=== PATIENT | female | born 1955 | race Caucasian/White ===

== ENCOUNTER 2022-08-31 08:30 | Emergency (ER) | payer MEDICARE, BC, SELFPAY ==
[2022-08-31 08:36] VITALS: BP 141/95; PULSE 98; RESP 16; TEMP 36.8; O2SAT 97
--- NOTE | 2022-08-31 08:58 | ED.GENADUL_ITS ---
Discharge Plan Disposition Patient Disposition: Home Condition: Improving Discharge Details Clinical Impression: Diverticulitis, Elevation of levels of liver transaminase levels Primary Care Provider: None,None ED Provider: Keturah Owens Home Meds and New Rx's Prescriptions: New amoxicillin-pot clavulanate 875-125 mg tablet 1 tab PO BID 10 Days Qty: 20 0RF Continued levothyroxine [Synthroid] 75 MCG tablet 75 mcg lisinopril 5 MG tablet 5 mg hydrochlorothiazide 25 MG tablet 12.5 mg losartan 50 mg Tablet 50 mg PO DAILY tamoxifen 20 mg Tablet 20 mg PO DAILY duloxetine 30 mg Capsule, Delayed Rel Sprinkle 30 mg PO DAILY Discontinued nitrofurantoin monohyd/m-cryst [Macrobid] 100 mg Capsule 100 mg PO BID Rx Instructions: must administer with a meal/food No Action simvastatin 20 MG tablet 20 mg Discharge Instructions Instructions: Diverticulitis (ED), Diverticulitis Diet (ED) Additional Instructions: This CT shows that you have what is called diverticulitis. Clear liquids for the next 2 to 3 days advance as tolerated. Stay away from anything with seeds in it. Take the antibiotic as prescribed with yogurt or a probiotic daily. You may sto p the Macrobid. Also the lab work showed that your liver enzymes are slightly elevated this may be due to the cholesterol medication that you are taking. Please discuss this with your primary care provider. Follow up with primary care provider in 3-5 days. Return to ED sooner if any worsening or concerns. Increase oral fluids. Please take Ibuprofen with food every 4-6 hours as needed for pain and swelling. Medical Decision Making 66-year-old female presents to the ER with chief complaint of nausea flank pain. Patient was diagnosed with UTI approximately 1 week ago. Has been on antibiotics for the last 5 days. She cannot recall the name of the antibiotics that she is taking. She also received 2 doses of Rocephin. She endorses nausea no vomiting no fever chills mild abdominal pain and mild flank pain. She does have a past medical history of high blood pressure hypothyroidism high cholesterol. UA, CBC CMP ordered. Patient taking Macrobid. CBC within normal limits, CMP shows potassium 3.1 glucose 155 bilirubin 2.6 AST 258 ALT 286 urinalysis shows 15 ketones moderate bilirubin negative for leukocytes or nitrites. Patient given cephalexin. She reports she is feeling better. Will give Augmentin in light of the Diverticulitis diagnosis. Discussed results with patient who verbalized understanding. She does have a history of diverticulitis. She denies any diarrhea however she is taking Metamucil. All of the questions were answered to the best my ability. I also did discuss her elevated liver enzymes and kidney gallstones which she is also aware of. She reports she is no longer taking the simvastatin. This text was generated using [employer]™ dictation system, please disregard any oddities of phrase or misspellings. Imaging Data Radiologic Study: Imaging: CT Scan Radiologist's impression: IMPRESSION: 1. Diverticulosis and Bowel wall thickening along the descending colon. Mild pericolonic inflammatory changes. Series 2, image 28 -34 No evidence of perforation or abscess formation or bleeding. Findings consistent with mild acute diverticulitis. 2. Large hiatal hernia 8 cm.. 3. Multiple gallstones in a contracted gallbladder. Thank you for allowing us to participate in the care of your patient. Dictated and Authenticated by: Bessy Barrientos MD Lab Data Lab results reviewed: Yes I reviewed the patient's lab results. Labs: Laboratory Tests Range/Units 08/31/22 08/31/22 08/31/22 08:40 09:05 09:05 WBC (4.4-10.8) 10^3/uL 4.90 RBC (3.93-5.22) 10^6/uL 4.71 Hgb (11.2-15.7) g/dL 14.0 Hct (36.0-46.0) % 41.6 MCV (80-95) fL 88 MCH (27.0-33.0) pg 29.7 MCHC (32.0-36.0) % 33.7 RDW (11.7-14.6) % 11.8 Plt Count (130-400) 10^3/uL 183 MPV (8.0-11.0) fL 10.5 Immature Gran % 0.2 Neutrophils % 70.6 Lymphocytes % 13.5 Monocytes % 10.6 Eosinophils % 4.3 Basophils % 0.8 Nucleated RBC % (0.0-0.3) % 0.0 Absolute Neutrophils (1.2-6.7) 10^3/uL 3.46 Absolute Lymphocytes (1.2-3.4) 10^3/uL 0.66 L Absolute Monocytes (0.1-0.8) 10^3/uL 0.52 Absolute Eosinophils (0.0-0.7) 10^3/uL 0.21 Absolute Basophils (0.0-0.2) 10^3/uL 0.04 Sodium (136-145) mmol/L 138 Potassium (3.5-5.1) mmol/L 3.1 L Chloride (98-107) mmol/L 101 Carbon Dioxide (21.0-32.0) mmol/L 28.5 Anion Gap (3-11) mmol/L 8.5 BUN (7-18) mg/dL 7 Creatinine (0.55-1.02) mg/dL 0.9 Est GFR (CKD-EPI 2020) (mL/min/1.73m2) 70.07 Glucose (74-106) mg/dL 155 H Calcium (8.5-10.1) mg/dL 9.1 Total Bilirubin (0.2-1.0) mg/dL 2.6 H AST (15-37) U/L 258 H ALT (14-59) U/L 286 H Alkaline Phosphatase (46-116) U/L 115 Total Protein (6.4-8.2) g/dL 7.8 Albumin (3.4-5.0) g/dL 3.5 Urine Color (Yellow) Yellow Urine Clarity (Clear) Clear Urine pH (5-8) 5.5 Ur Specific Qulin (1.005-1.025) 1.010 Urine Protein (Negative) mg/dL 30 H Urine Ketones (Negative) mg/dL 15 H Urine Blood (Negative) Negative Urine Nitrite (Negative) Negative Urine Bilirubin (Negative) Moderate H Urine Urobilinogen (Up to 0.2) mg/dL 1.0 H Ur Leukocyte Esterase (Negative) Negative Urine RBC (0-2) HPF 0-2 Urine WBC (0-5) HPF 0-2 Ur Epithelial Cells (Negative) HPF Many Urine Crystals (Negative) HPF Negative Urine Bacteria (Negative) HPF Rare Urine Casts (Negative) LPF Negative Urine Mucus (Negative) Negative Ur Culture Indicated? No/Sq. Contamination Urine Glucose (Negative) mg/dL Negative HPI General Mode of arrival: ambulatory . Date/Time Provider Initiated Documentation: 08/31/22 08:34 . Limitations to Documentation: no limitations . Information obtained by: patient, family, RN notes reviewed and old records reviewed . HPI Narrative: 66-year-old female presents to the ER with chief complaint of nausea flank pain. Patient was diagnosed with UTI approximately 1 week ago. Has been on antibiotics for the last 5 days. She cannot recall the name of the antibiotics that she is taking. She also received 2 doses of Rocephin. She endorses nausea no vomiting no fever chills mild abdominal pain and mild flank pain. She does have a past medical history of high blood pressure hypothyroidism high cholesterol. Related Data Home Medications Medication Instructions Recorded Confirmed hydrochlorothiazide 25 mg tablet 12.5 mg 02/24/13 02/24/13 levothyroxine 75 mcg tablet 75 mcg 02/24/13 02/24/13 (Synthroid) lisinopril 5 mg tablet 5 mg 02/24/13 02/24/13 simvastatin 20 mg tablet 20 mg 02/24/13 02/24/13 amoxicillin 875 mg-potassium 1 tab PO BID 10 days #20 tabs 08/31/22 clavulanate 125 mg tablet duloxetine 30 mg capsule,delayed 30 mg PO DAILY 08/31/22 08/31/22 release sprinkle losartan 50 mg tablet 50 mg PO DAILY 08/31/22 08/31/22 tamoxifen 20 mg tablet 20 mg PO DAILY 08/31/22 08/31/22 Previous Rx's Medication Instructions Recorded amoxicillin 875 mg-potassium 1 tab PO BID 10 days #20 tabs 08/31/22 clavulanate 125 mg tablet Allergies Allergy/AdvReac Type Severity Reaction Status Date / Time acetaminophen [From Percocet] Allergy Unverified 08/31/22 08:54 oxycodone HCl [From Percocet] Allergy Unverified 08/31/22 08:54 General Stated Complaint: Urinary KIAH: 3 Review of Systems All systems reviewed & are unremarkable except as noted in HPI and below Gastrointestinal Gastrointestinal: Reports nausea Genitourinary Genitourinary: Reports as per HPI and Reports flank pain PFSH All Active Problems (Updated 08/31/22 @ 10:46 by Keturah Owens NP) Diverticulitis (Chronic) Elevation of levels of liver transaminase levels (Acute) Social History Smoking/Tobacco Use Status: Former Tobacco Use Smoking risk assessment performed?: Yes Alcohol Intake: current Alcohol Intake frequency: holidays/special occasions only Alcohol type: beer Drug use: Never Housing: house Do you feel safe at home: Yes Do you feel safe in your relationship?: Yes Exam Narrative Exam Narrative: Constitutional: Alert and oriented x3. Appears stated age. Normal body habitus. Head: Normocephalic, no trauma. Eyes: Pupils PERRL, Red reflex noted, EOM's intact. Eyelids symmetrical without lesions, discharge, or swelling. ENT: Bilateral TM's WNL, External ear normal to inspection, no mastoid TTP, swelling, or erythema, Nasal turbinates WNL, no nasal discharge. Normal dentition, Posterior pharynx WNL, no exudate. Chest: RRR, Normal S1, S2, distal pulses intact. Resp: Lungs clear to auscultation bilaterally, no wheezes, rales, or rhonchi. Abdomen: Soft, non-distended, Normoactive bowel sounds all 4 quads. Musculoskeletal: Normal gait, 5/5 strength to all four extremities. Skin: No suspicious rashes or lesions. Capillary refill less than 2 sec. Neurologic: Cranial nerves II-XII intact. Alert and oriented x 3. Motor: No deficits noted. Sensory: Intact bilaterally all 4 extremities. Reflexes: DTR's intact bilaterally.. Hematologic/Lymphatic: No ecchymosis, no lymphadenopathy. Course Vital Signs Vital signs: Vital Signs Temperature 36.8 C 08/31/22 08:36 Pulse 98 H 08/31/22 08:36 Respiratory Rate 16 08/31/22 08:36 Blood Pressure 141/95 H 08/31/22 08:36 Pulse Oximetry 97 08/31/22 08:36 Temperature 36.8 C 08/31/22 08:36 Pulse 98 H 08/31/22 08:36 Respiratory Rate 16 08/31/22 08:36 Respiratory Effort Normal, Non-Labored 08/31/22 08:39 Blood Pressure 141/95 H 08/31/22 08:36 Pulse Oximetry 97 08/31/22 08:36 Oxygen Delivery Method Room Air 08/31/22 08:36 Oxygen Flow Rate 0 08/31/22 08:36 Pain Level 3 08/31/22 08:47 PAWSS Have you Been Recently Intoxicated or Drunk Within the Last 30 days?: No Have you Ever Experienced Previous Episodes of Alcohol Withdrawal?: No Have you ever Experienced Withdrawal Seizures?: No Have you ever Experienced Delirium Tremens(DT)s?: No Have you ever undergone Alcohol Rehabilitation Treatment (i.e, inpt ot outpatient treatment programs)?: No Have you ever Experienced Blackouts?: No Have you ever Combined Alcohol with other Downers within the last 90 days?: No Have you ever Combined Alcohol with any other Substance of Abuse during the last 90 days?: No Result: 0
[2022-08-31 09:05] LABS: Bilirubin Moderate (Negative); Blood Negative (Negative); Clarity Clear (Clear); Glucose Negative (Negative); Ketones 15 mg/dL (Negative); Leukocyte Esterase Negative (Negative); Nitrite Negative (Negative); pH 5.5 (5-8)
[2022-08-31 09:10] LABS: Abs Immature Grans 0.01 10^3/uL (0.0-0.06); Absolute Basophil Count 0.04 10^3/uL (0.0-0.2); Absolute Eosinophil Count 0.21 10^3/uL (0.0-0.7); Absolute Lymphocyte Count 0.66 10^3/uL (1.2-3.4); Absolute Monocyte Count 0.52 10^3/uL (0.1-0.8); Absolute Neutrophil Count 3.46 10^3/uL (1.2-6.7); Basophils % 0.8; Eosinophils % 4.3; HCT 41.6 % (36.0-46.0); Immature Grans % 0.2; Lymphocytes % 13.5; MCH 29.7 pg (27.0-33.0); MCHC 33.7 % (32.0-36.0); MCV 88 fL (80-95); MPV 10.5 fL (8.0-11.0); Monocytes % 10.6; Neutrophils % 70.6; Platelet Count 183 10^3/uL (130-400); RBC 4.71 10^6/uL (3.93-5.22); RDW 11.8 % (11.7-14.6); RDW-SD 38.2 fL
[2022-08-31 09:14] LABS: Bacteria Rare HPF (Negative); Casts Negative LPF (Negative); Crystals Negative HPF (Negative); Epithelial Cells Many HPF (Negative); Mucus Negative (Negative); RBC 0-2 HPF (0-2); WBC 0-2 HPF (0-5)
[2022-08-31 09:15] LABS: C & S Indicated? No/Sq. Contamination
--- NOTE | 2022-08-31 09:15 | DI.CT_ITS ---
Exam(s) CT ABDOMEN PELVIS WO EXAM: CT ABDOMEN PELVIS WO CLINICAL HISTORY: Flank pain. TECHNIQUE: Imaging Protocol: Axial computed tomography images with coronal and sagittal reformatted images were created and reviewed. COMPARISON: No exams were available for comparison FINDINGS: ABDOMEN: Lung Bases: There is a large hiatal hernia. Liver: There is diffuse fatty infiltration of the liver. No measurable mass. Gallbladder and biliary tract: Cholelithiasis. No biliary ductal dilatation. Pancreas: Normal density, no abnormal calcifications or inflammatory process. Spleen: Normal. Kidneys: Normal size, contour and axis.No radiodense stones or obstructive uropathy. No masses seen. Adrenal glands: No mass is seen. Lymph nodes: Within normal limits. Abdominal Aorta: Abdominal portion non-dilated. Atherosclerosis. PELVIS: Bladder:Symmetric distention, no gross wall thickening. Bowel: There is diverticulosis of the colon. The colon is collapsed limiting evaluation for wall thi ckening. No definite evidence of acute diverticulitis. There is no evidence of bowel obstruction. There does appear to be mild wall thickening in small bowel loops with adjacent mesenteric stranding in the left abdomen. Findings are suspicious for an enteritis. There is no evidence of appendicitis . Postsurgical changes seen in the rectosigmoid region. Peritoneal cavity: There is mild stranding in the mesentery in the left abdomen. This may represent a mild infectious/inflammatory process or enteritis. No free air. Reproductive organs: Unremarkable as visualized. Bones: Within normal limits. Soft Tissues: Within normal limits. IMPRESSION: 1. Wall thickening seen predominantly involving small bowel loops in the left abdomen with adjacent s oft tissue stranding suspicious for an infectious or inflammatory enteritis. 2. Diverticulosis of the colon. The bowel wall does not appear to be significantly thickened. The c olon is not well distended limiting evaluation. 3. No abscess or free air. 4. Cholelithiasis. 5. Large hiatal hernia. RADIATION DOSE DELIVERED: 1,022.81mGy.cm Total DLP DATA REPOSITORY: All CT scans at this facility are submitted to the National Radiology Data Registry (NRDR) Dose Index Registry (DIR) with the [employer] ([employer]). RADIATION OPTIMIZATION: All CT scans at this facility use at least one of these dose optimization te chniques: automated exposure control; mA and/or kV adjustment per patient size (includes targeted exa ms where dose is matched to clinical indication); or iterative reconstruction.
[2022-08-31 09:22] LABS: ALT 286 U/L (14-59); AST 258 U/L (15-37); Albumin 3.5 g/dL (3.4-5.0); Alkaline Phosphatase 115 U/L (46-116); Anion Gap 8.5 mmol/L (3-11); BUN 7 mg/dL (7-18); Bilirubin, Total 2.6 mg/dL (0.2-1.0); CO2 28.5 mmol/L (21.0-32.0); CREATININE 0.9 mg/dL (0.55-1.02); Calcium 9.1 mg/dL (8.5-10.1); Chloride 101 mmol/L (98-107); Estimated GFR 70.07 (mL/min/1.73m2); Glucose 155 mg/dL (74-106); Potassium 3.1 mmol/L (3.5-5.1); Sodium 138 mmol/L (136-145); Total Protein 7.8 g/dL (6.4-8.2)
[2022-08-31] MEDS: Normal Saline 250 ML 500 ML IV (09:27)
[2022-08-31] MEDS: Cephalexin 500 MG CAP PO (09:27)
[2022-08-31] MEDS: Ondansetron 4 MG/2 ML VIAL IVP (09:28)
--- NOTE | 2022-08-31 10:36 | DI.VRAD_ITS ---
PROCEDURE INFORMATION: Exam: CT Abdomen And Pelvis Without Contrast Exam date and time: 08/31/2022 9:40 AM Age: 66 years old Clinical indication: Other: Flank pain TECHNIQUE: Imaging protocol: Computed tomography of the abdomen and pelvis without contrast. Radiation optimization: All CT scans at this facility use at least one of these dose optimization techniques: automated exposure control; mA and/or kV adjustment per patient size (includes targeted exams where dose is matched to clinical indication); or iterative reconstruction. COMPARISON: No relevant prior studies available. FINDINGS: Lungs: Right basilar atelectasis Diaphragm: Large hiatal hernia 8 cm.. Liver: Hepatic steatosis Gallbladder and bile ducts: Multiple gallstones in a contracted gallbladder. Pancreas: Normal. No ductal dilation. Spleen: Normal. No splenomegaly. Adrenal glands: Normal. No mass. Kidneys and ureters: There is no evidence of renal or ureteral calcifications. Stomach and bowel: Diverticulosis and Bowel wall thickening along the descending colon. Mild pericolonic inflammatory changes. Series 2, image 28 -34 No evidence of perforation or abscess formation or bleeding. Findings consistent with acute diverticulitis. Sutures in the distal rectosigmoid Appendix: No evidence of appendicitis. Intraperitoneal space: Unremarkable. No free air. No significant fluid collection. Vasculature: Unremarkable. No abdominal aortic aneurysm. Lymph nodes: Unremarkable. No enlarged lymph nodes. Urinary bladder: Unremarkable as visualized. Reproductive: Unremarkable as visualized. Bones/joints: Unremarkable. No acute fracture. Soft tissues: Unremarkable. IMPRESSION: 1. Diverticulosis and Bowel wall thickening along the descending colon. Mild pericolonic inflammatory changes. Series 2, image 28 -34 No evidence of perforation or abscess formation or bleeding. Findings consistent with mild acute diverticulitis. 2. Large hiatal hernia 8 cm.. 3. Multiple gallstones in a contracted gallbladder. Dictated and Authenticated by: Bessy Barrientos MD. Ordering:ELVIA Rebollar MD
[2022-08-31 10:57] VITALS: BP 144/86; PULSE 74; RESP 18; O2SAT 97
[2022-08-31] MEDS: Amox. 875/Clav. 125, 2 TABS/BTL 1 TAB PO (10:58)
== END 2022-08-31 10:59 | disposition home or self-care (01) ==
PROVIDERS: Emergency Provider Registered Nurse Emergency
DX: K57.92 Diverticulitis of intestine, part unspecified, without perforation or abscess without bleeding (principal); R74.01 Elevation of levels of liver transaminase levels
CPT/HCPCS: 36415; 80053; 96361; 96374; 99284; 74176; 81003; 81015; 85025; J2405

== ENCOUNTER 2022-09-01 08:04 | Emergency (ER) | payer MEDICARE, BC, SELFPAY ==
[2022-09-01 08:09] VITALS: BP 127/77; PULSE 101; RESP 16; TEMP 37.1; O2SAT 95
[2022-09-01] MEDS: Ondansetron 4 MG/2 ML VIAL IVP (08:42)
[2022-09-01] MEDS: Normal Saline 1,000 ML 1000 ML IV ×2 (08:42→10:02)
[2022-09-01 08:43] LABS: Abs Immature Grans 0.02 10^3/uL (0.0-0.06); Absolute Basophil Count 0.03 10^3/uL (0.0-0.2); Absolute Eosinophil Count 0.15 10^3/uL (0.0-0.7); Absolute Lymphocyte Count 0.32 10^3/uL (1.2-3.4); Absolute Monocyte Count 0.39 10^3/uL (0.1-0.8); Absolute Neutrophil Count 5.63 10^3/uL (1.2-6.7); Basophils % 0.5; Eosinophils % 2.3; HCT 40.1 % (36.0-46.0); HGB 13.7 g/dL (11.2-15.7); Immature Grans % 0.3; Lymphocytes % 4.9; MCH 29.8 pg (27.0-33.0); MCHC 34.2 % (32.0-36.0); MCV 87 fL (80-95); MPV 10.3 fL (8.0-11.0); Platelet Count 174 10^3/uL (130-400); RDW 11.9 % (11.7-14.6); RDW-SD 38.5 fL; WBC 6.54 10^3/uL (4.4-10.8)
[2022-09-01 08:51] LABS: Magnesium 1.5 mg/dL (1.8-2.4)
[2022-09-01 08:57] LABS: ALT 274 U/L (14-59); AST 201 U/L (15-37); Albumin 3.2 g/dL (3.4-5.0); Alkaline Phosphatase 108 U/L (46-116); Anion Gap 12.1 mmol/L (3-11); BUN 9 mg/dL (7-18); Bilirubin, Total 2.7 mg/dL (0.2-1.0); CO2 24.9 mmol/L (21.0-32.0); CREATININE 0.8 mg/dL (0.55-1.02); Calcium 8.5 mg/dL (8.5-10.1); Chloride 103 mmol/L (98-107); Estimated GFR 80.71 (mL/min/1.73m2); Glucose 146 mg/dL (74-106); Lipase 32 U/L (16-77); Potassium 3.4 mmol/L (3.5-5.1); Sodium 140 mmol/L (136-145); Total Protein 7.3 g/dL (6.4-8.2)
[2022-09-01] MEDS: Magnesium Oxide 400 MG TAB 800 MG PO (09:05)
[2022-09-01 09:52] LABS: Bilirubin Large (Negative); Blood Negative (Negative); Clarity Sl Cloudy (Clear); Glucose 100 mg/dL (Negative); Ketones 15 mg/dL (Negative); Leukocyte Esterase Negative (Negative); Nitrite Negative (Negative); pH 5.5 (5-8)
[2022-09-01 09:58] LABS: Bacteria Rare HPF (Negative); C & S Indicated? No/Sq. Contamination; Casts Negative LPF (Negative); Crystals Negative HPF (Negative); Epithelial Cells Many HPF (Negative); Mucus Trace (Negative); RBC 0-2 HPF (0-2); WBC 0-2 HPF (0-5)
--- NOTE | 2022-09-01 10:58 | ED.GENADUL_ITS ---
Discharge Plan Disposition Patient Disposition: Home Discharge Details Clinical Impression: Elevation of levels of liver transaminase levels, Elevated bilirubin, Acute dehydration, Low blood magnesium Primary Care Provider: None,None ED Provider: Bisi Cee Home Meds and New Rx's Prescriptions: New magnesium 250 mg tablet 250 mg PO DAILY Qty: 10 0RF ondansetron 4 mg tablet,disintegrating 4 mg PO DAILY 5 Days Qty: 5 0RF Continued levothyroxine [Synthroid] 75 MCG tablet 75 mcg simvastatin 20 MG tablet 20 mg Patient Comments: does not take anymore lisinopril 5 MG tablet 5 mg Patient Comments: does not take any more hydrochlorothiazide 25 MG tablet 12.5 mg Patient Comments: does not take anymore losartan 50 mg Tablet 50 mg PO DAILY tamoxifen 20 mg Tablet 20 mg PO DAILY duloxetine 30 mg Capsule, Delayed Rel Sprinkle 30 mg PO DAILY Discontinued amoxicillin-pot clavulanate 875-125 mg tablet 1 tab PO BID 10 Days Qty: 20 0RF Discharge Instructions Instructions: Dehydration (ED) Additional Instructions: Take Zofran as needed for nausea and vomiting Take your magnesium supplement Stop the amoxicillin/clavulanate and follow-up with your doctor, you should be reevaluated next week You should also have your liver enzymes and your bilirubin checked next week, try to have as much liquid today as you are able to, recommend juice, popsicles, water, johana andrey and bland diet as tolerated when you are feeling symptomatic improvement I ordered an outpatient ultrasound, this should Medical Decision Making 66-year-old female presenting for reevaluation after being diagnosed with diverticulitis yesterday and started on Augmentin Reportedly started with diarrhea, nausea, vomiting after initiating Augmentin last evening. Denies any significant exacerbation of pain Denies any fever or chills. Denies any blood in vomitus or stool Denies any known sick contacts or exotic travel Magnesium low at 1.5 Urinalysis and CMP consistent with dehydration Although she does have elevated LFTs, they are improved from yesterday her bilirubin remains about the same, 2.6 yesterday's visit, 2.[address] yesterday was reviewed and there is no evidence of stone in the bile duct, lipase within normal limits, no leukocytosis and patient is afebrile without tenderness in the right upper quadrant, will order outpatient ultrasound for further evaluation although clinically she does not appear to have Jaye cystitis and I suspect that her discomfort is related to enteritis like illness She will need close outpatient reassessment, will prescribe magnesium, Zofran, and she will discontinue her Augmentin Outpatient ultrasound has been ordered and she will need repeat labs with her doctor next week discharged home in stable condition with stable vitals, tolerating p.o. challenge HPI General Date/Time Provider Initiated Documentation: 09/01/22 08:07 . HPI Narrative: This 66-year-old female presents for nausea vomiting and diarrhea. States she has had some intermittent abdominal pain for the past several days. Started with profuse diarrhea and nausea and vomiting last evening after starting Au gmentin for suspected diverticulitis. Denies any exacerbation of her pain. She states she feels like she might have a urinary tract infection. She also is having some back pain. She denies any dramatic change aside from the nausea vomiting and diarrhea. She has taken 2 doses of her Augmentin and felt nauseous with each consumption. Related Data Home Medications Medication Instructions Recorded Confirmed hydrochlorothiazide 25 mg tablet 12.5 mg 02/24/13 02/24/13 levothyroxine 75 mcg tablet 75 mcg 02/24/13 02/24/13 (Synthroid) lisinopril 5 mg tablet 5 mg 02/24/13 02/24/13 simvastatin 20 mg tablet 20 mg 02/24/13 02/24/13 duloxetine 30 mg capsule,delayed 30 mg PO DAILY 08/31/22 09/01/22 release sprinkle losartan 50 mg tablet 50 mg PO DAILY 08/31/22 09/01/22 tamoxifen 20 mg tablet 20 mg PO DAILY 08/31/22 09/01/22 magnesium 250 mg tablet 250 mg PO DAILY #10 tabs 09/01/22 ondansetron 4 mg disintegrating 4 mg PO DAILY 5 days #5 tabs 09/01/22 tablet Previous Rx's Medication Instructions Recorded magnesium 250 mg tablet 250 mg PO DAILY #10 tabs 09/01/22 ondansetron 4 mg disintegrating 4 mg PO DAILY 5 days #5 tabs 09/01/22 tablet Allergies Allergy/AdvReac Type Severity Reaction Status Date / Time acetaminophen [From Percocet] Allergy Unverified 09/01/22 08:23 oxycodone HCl [From Percocet] Allergy Unverified 09/01/22 08:23 General Stated Complaint: Nausea/Vomit/Diar KIAH: 3 PFSH All Active Problems (Updated 09/01/22 @ 11:06 by BONITA Taylor) Diverticulitis (Chronic) Elevation of levels of liver transaminase levels (Acute) Elevated bilirubin (Acute) Acute dehydration (Acute) Low blood magnesium (Acute) Social History Smoking/Tobacco Use Status: Former Tobacco Use Smoking risk assessment performed?: Yes Alcohol Intake: current Alcohol Intake frequency: holidays/special occasions only Alcohol type: beer Drug use: Never Housing: house Do you feel safe at home: Yes Do you feel safe in your relationship?: Yes Course Vital Signs Vital signs: Vital Signs Temperature 37.1 C 09/01/22 08:09 Pulse 101 H 09/01/22 08:09 Respiratory Rate 16 09/01/22 08:09 Blood Pressure 127/77 09/01/22 08:09 Pulse Oximetry 95 09/01/22 08:09 Temperature 37.1 C 09/01/22 08:09 Pulse 101 H 09/01/22 08:09 Respiratory Rate 16 09/01/22 08:09 Respiratory Effort Normal 09/01/22 08:12 Blood Pressure 127/77 09/01/22 08:09 Blood Pressure Position Sitting 09/01/22 08:09 Pulse Oximetry 95 09/01/22 08:09 Oxygen Delivery Method Room Air 09/01/22 08:09 Oxygen Flow Rate 0 09/01/22 08:09 Lab/Test Results Lab/Test Results: Laboratory Tests Range/Units 09/01/22 09/01/22 09/01/22 08:32 08:32 08:32 WBC (4.4-10.8) 10^3/uL 6.54 RBC (3.93-5.22) 10^6/uL 4.60 Hgb (11.2-15.7) g/dL 13.7 Hct (36.0-46.0) % 40.1 MCV (80-95) fL 87 MCH (27.0-33.0) pg 29.8 MCHC (32.0-36.0) % 34.2 RDW (11.7-14.6) % 11.9 Plt Count (130-400) 10^3/uL 174 MPV (8.0-11.0) fL 10.3 Immature Gran % 0.3 Neutrophils % 86.0 Lymphocytes % 4.9 Monocytes % 6.0 Eosinophils % 2.3 Basophils % 0.5 Nucleated RBC % (0.0-0.3) % 0.0 Absolute Neutrophils (1.2-6.7) 10^3/uL 5.63 Absolute Lymphocytes (1.2-3.4) 10^3/uL 0.32 L Absolute Monocytes (0.1-0.8) 10^3/uL 0.39 Absolute Eosinophils (0.0-0.7) 10^3/uL 0.15 Absolute Basophils (0.0-0.2) 10^3/uL 0.03 Sodium (136-145) mmol/L 140 Potassium (3.5-5.1) mmol/L 3.4 L Chloride (98-107) mmol/L 103 Carbon Dioxide (21.0-32.0) mmol/L 24.9 Anion Gap (3-11) mmol/L 12.1 H BUN (7-18) mg/dL 9 Creatinine (0.55-1.02) mg/dL 0.8 Est GFR (CKD-EPI 2020) (mL/min/1.73m2) 80.71 Glucose (74-106) mg/dL 146 H Calcium (8.5-10.1) mg/dL 8.5 Magnesium (1.8-2.4) mg/dL 1.5 L Total Bilirubin (0.2-1.0) mg/dL 2.7 H AST (15-37) U/L 201 H ALT (14-59) U/L 274 H Alkaline Phosphatase (46-116) U/L 108 Total Protein (6.4-8.2) g/dL 7.3 Albumin (3.4-5.0) g/dL 3.2 L Lipase (16-77) U/L 32 Urine Color (Yellow) Urine Clarity (Clear) Urine pH (5-8) Ur Specific [place] (1.005-1.025) Urine Protein (Negative) mg/dL Urine Ketones (Negative) mg/dL Urine Blood (Negative) Urine Nitrite (Negative) Urine Bilirubin (Negative) Urine Urobilinogen (Up to 0.2) mg/dL Ur Leukocyte Esterase (Negative) Urine RBC (0-2) HPF Urine WBC (0-5) HPF Ur Epithelial Cells (Negative) HPF Urine Crystals (Negative) HPF Urine Bacteria (Negative) HPF Urine Casts (Negative) LPF Urine Mucus (Negative) Ur Culture Indicated? Urine Glucose (Negative) mg/dL Range/Units 09/01/22 09:41 WBC (4.4-10.8) 10^3/uL RBC (3.93-5.22) 10^6/uL Hgb (11.2-15.7) g/dL Hct (36.0-46.0) % MCV (80-95) fL MCH (27.0-33.0) pg MCHC (32.0-36.0) % RDW (11.7-14.6) % Plt Count (130-400) 10^3/uL MPV (8.0-11.0) fL Immature Gran % Neutrophils % Lymphocytes % Monocytes % Eosinophils % Basophils % Nucleated RBC % (0.0-0.3) % Absolute Neutrophils (1.2-6.7) 10^3/uL Absolute Lymphocytes (1.2-3.4) 10^3/uL Absolute Monocytes (0.1-0.8) 10^3/uL Absolute Eosinophils (0.0-0.7) 10^3/uL Absolute Basophils (0.0-0.2) 10^3/uL Sodium (136-145) mmol/L Potassium (3.5-5.1) mmol/L Chloride (98-107) mmol/L Carbon Dioxide (21.0-32.0) mmol/L Anion Gap (3-11) mmol/L BUN (7-18) mg/dL Creatinine (0.55-1.02) mg/dL Est GFR (CKD-EPI 2020) (mL/min/1.73m2) Glucose (74-106) mg/dL Calcium (8.5-10.1) mg/dL Magnesium (1.8-2.4) mg/dL Total Bilirubin (0.2-1.0) mg/dL AST (15-37) U/L ALT (14-59) U/L Alkaline Phosphatase (46-116) U/L Total Protein (6.4-8.2) g/dL Albumin (3.4-5.0) g/dL Lipase (16-77) U/L Urine Color (Yellow) [place] Urine Clarity (Clear) Sl Cloudy Urine pH (5-8) 5.5 Ur Specific [place] (1.005-1.025) 1.020 Urine Protein (Negative) mg/dL 100 H Urine Ketones (Negative) mg/dL 15 H Urine Blood (Negative) Negative Urine Nitrite (Negative) Negative Urine Bilirubin (Negative) Large H Urine Urobilinogen (Up to 0.2) mg/dL 2.0 H Ur Leukocyte Esterase (Negative) Negative Urine RBC (0-2) HPF 0-2 Urine WBC (0-5) HPF 0-2 Ur Epithelial Cells (Negative) HPF Many Urine Crystals (Negative) HPF Negative Urine Bacteria (Negative) HPF Rare Urine Casts (Negative) LPF Negative Urine Mucus (Negative) Trace Ur Culture Indicated? No/Sq. Contamination Urine Glucose (Negative) mg/dL 100 H PAWSS Have you Been Recently Intoxicated or Drunk Within the Last 30 days?: No Have you Ever Experienced Previous Episodes of Alcohol Withdrawal?: No Have you ever Experienced Withdrawal Seizures?: No Have you ever Experienced Delirium Tremens(DT)s?: No Have you ever undergone Alcohol Rehabilitation Treatment (i.e, inpt ot outpati ent treatment programs)?: No Have you ever Experienced Blackouts?: No Have you ever Combined Alcohol with other Downers within the last 90 days?: No Have you ever Combined Alcohol with any other Substance of Abuse during the last 90 days?: No Result: 0
[2022-09-01 11:28] VITALS: BP 125/78; PULSE 85; RESP 16; O2SAT 97
== END 2022-09-01 11:30 | disposition home or self-care (01) ==
PROVIDERS: Emergency Provider Physician Assistant
DX: R74.01 Elevation of levels of liver transaminase levels (principal); R17 Unspecified jaundice; E86.0 Dehydration; R11.2 Nausea with vomiting, unspecified; R19.7 Diarrhea, unspecified; E83.42 Hypomagnesemia
CPT/HCPCS: 36415; 80053; 83690; 96361; 96374; 99284; 81003; 81015; 83735; 85025; J2405

== ENCOUNTER 2022-09-02 08:39 | Emergency (ER) | payer MEDICARE, BC, SELFPAY ==
[2022-09-02 08:45] VITALS: BP 137/87; PULSE 69; RESP 16; TEMP 36.7; O2SAT 99
--- NOTE | 2022-09-02 09:14 | ED.GENADUL_ITS ---
Discharge Plan Disposition Patient Disposition: Home Condition: Good Discharge Details Clinical Impression: Cholelithiasis Primary Care Provider: None,None ED Provider: Marian Tubbs Home Meds and New Rx's Prescriptions: Continued levothyroxine [Synthroid] 75 MCG tablet 75 mcg PO DAILY simvastatin 20 MG tablet 20 mg Patient Comments: does not take anymore lisinopril 5 MG tablet 5 mg Patient Comments: does not take any more hydrochlorothiazide 25 MG tablet 12.5 mg Patient Comments: does not take anymore magnesium 250 mg tablet 250 mg PO DAILY Qty: 10 0RF ondansetron 4 mg tablet,disintegrating 4 mg PO DAILY 5 Days Qty: 5 0RF losartan 50 mg Tablet 50 mg PO DAILY tamoxifen 20 mg Tablet 20 mg PO DAILY duloxetine 30 mg Capsule, Delayed Rel Sprinkle 30 mg PO DAILY Discharge Instructions Instructions: Biliary Colic (ED), Low Fat Diet (ED) Additional Instructions: Your ultrasound shows that you have fatty liver as well as mobile gall gallstones as we discussed. These stones are likely what is causing your recurrent abdominal pain. Please try to stick with low fat diet, information on this is attached. Please journal your symptoms to identify triggers. Referral has been sent as have your images (CT scan and ultrasound) to Dr. Zuniga at [facility]. If you develop increased pain, pain that is not improving, fevers/chills, vomiting, inability to stay hydrated or other new/worsening symptoms please seek care urgently once again. Otherwise, please follow up with Dr. Zuniga to discuss definitive management of your gall stones. Referrals: Chestre Zuniga DO [OSTEOPATHIC DOCTOR] - Medical Decision Making Patient is a pleasant 66 year old female presenting today for f/u of her abdominal US to assess GB. Was here over the weekend, reviewed previous notes, had outpatient US in f/u for transaminitis and concern for gall stones. She states that she was diagnosed with gallstones 3 years ago, incidentally, with her workup for breast cancer. She states that she has had multiple abdominal surgeries, complicated by adhesions leading to obstruction. She is concerned that she may have to have GB out and this could be a problem for hte procedure. She denies pain currently. Is feeling improved, feels that her visit over the weekend was primarily associated with GI bug she got from her grandsons. FINDINGS: LIVER: Normal size.? Increased echogenicity and decreased through transmission consistent with hepatic steatosis.? No focal liver lesions are seen.. GALLBLADDER: Mobile cholelithiasis.? No evidence of wall thickening. No pericholecystic fluid identified. DUVAL'S SIGN: Negative. BILIARY SYSTEM: No intrahepatic or extrahepatic biliary ductal dilation. KIDNEYS: Kidneys are symmetric in size. No evidence of renal calculi. No evidence of hydronephrosis. No renal mass or cyst identified. PANCREAS: Normal where visualized. SPLEEN: Not enlarged. ABDOMINAL AORTA AND IVC: Visualized portions normal caliber. ASCITES: None seen. IMPRESSION: Hepatic steatosis.? Cholelithiasis. Discussed results. Again, no pain currently. Resting comfortably. She would like to f/u with Dr. Zuniga at [facility] as she has had surgery with him in the past. Advised on low fat diet. Advised on strict return precations. She will journal to tract symptoms. All of her questions and concerns were addressed, she is in agreement with this plan. [facility] General Date/Time Provider Initiated Documentation: 09/02/22 08:41 . Limitations to Documentation: no limitations . Information obtained by: patient, family, RN notes reviewed and old records reviewed . History of Present Illness 66 year old F presents to the emergency department with the chief complaint of follow up of ultrasound result, described as mild (no pain currently), and is localized to the abdomen. Patient reports radiation to back. Eating worsens symptoms . Patient notes no other symptoms.. Patient did receive the following treatments prior to arrival, none Related Data Home Medications Medication Instructions Recorded Confirmed hydrochlorothiazide 25 mg tablet 12.5 mg 02/24/13 02/24/13 levothyroxine 75 mcg tablet 75 mcg PO DAILY 02/24/13 09/02/22 (Synthroid) lisinopril 5 mg tablet 5 mg 02/24/13 02/24/13 simvastatin 20 mg tablet 20 mg 02/24/13 02/24/13 duloxetine 30 mg capsule,delayed 30 mg PO DAILY 08/31/22 09/02/22 release sprinkle losartan 50 mg tablet 50 mg PO DAILY 08/31/22 09/02/22 tamoxifen 20 mg tablet 20 mg PO DAILY 08/31/22 09/02/22 magnesium 250 mg tablet 250 mg PO DAILY #10 tabs 09/01/22 09/02/22 ondansetron 4 mg disintegrating 4 mg PO DAILY 5 days #5 tabs 09/01/22 09/02/22 tablet Previous Rx's Medication Instructions Recorded magnesium 250 mg tablet 250 mg PO DAILY #10 tabs 09/01/22 ondansetron 4 mg disintegrating 4 mg PO DAILY 5 days #5 tabs 09/01/22 tablet Allergies Allergy/AdvReac Type Severity Reaction Status Date / Time acetaminophen [From Percocet] Allergy Unverified 09/02/22 08:48 oxycodone HCl [From Percocet] Allergy Unverified 09/02/22 08:48 General Stated Complaint: Recheck KIAH: 4 Review of Systems Constitutional Constitutional: Reports as per HPI, Denies chills and Denies fever(s) Cardiovascular Cardiovascular: Reports as per HPI, Denies chest pain and Denies dyspnea Respiratory Respiratory: Reports as per HPI, Denies cough and Denies dyspnea Gastrointestinal Gastrointestinal: Reports as per HPI Musculoskeletal Musculoskeletal: Reports as per HPI PFSH All Active Problems (Updated 09/02/22 @ 09:15 by BONITA Pelaez) Diverticulitis (Chronic) Elevation of levels of liver transaminase levels (Acute) Elevated bilirubin (Acute) Acute dehydration (Acute) Low blood magnesium (Acute) Cholelithiasis (Acute) Social History Smoking/Tobacco Use Status: Former Tobacco Use Smoking risk assessment performed?: Yes Alcohol Intake: current Alcohol Intake frequency: holidays/special occasions only Alcohol type: beer Drug use: Never Housing: house Do you feel safe at home: Yes Do you feel safe in your relationship?: Yes Exam Const General: cooperative, healthy appearing, comfortable, no acute distress and well developed Nutritional Appearance: average body habitus and well nourished Orientation: alert and awake Resp Effort & Inspection: normal respiratory effort, able to speak in complete sentences and no respiratory distress Skin General skin exam: no rashes or lesions noted Trauma: no lacerations or abrasions Neuro General: patient alert and patient awake Cognition: normal cognition Speech: speech normal Gait: normal gait Course Vital Signs Vital signs: Vital Signs Temperature 36.7 C 09/02/22 08:45 Pulse 69 09/02/22 08:45 Respiratory Rate 16 09/02/22 08:45 Blood Pressure 137/87 09/02/22 08:45 Pulse Oximetry 99 09/02/22 08:45 Temperature 36.7 C 09/02/22 08:45 Temperature Source Temporal Artery Scan 09/02/22 08:45 Pulse 69 09/02/22 08:45 Respiratory Rate 16 09/02/22 08:45 Respiratory Effort Normal, Non-Labored 09/02/22 08:51 Blood Pressure 137/87 09/02/22 08:45 Blood Pressure Position Sitting 09/02/22 08:45 Pulse Oximetry 99 09/02/22 08:45 Oxygen Delivery Method Room Air 09/02/22 08:45 Oxygen Flow Rate 0 09/02/22 08:45 PAWSS Have you Been Recently Intoxicated or Drunk Within the Last 30 days?: No Have you Ever Experienced Previous Episodes of Alcohol Withdrawal?: No Have you ever Experienced Withdrawal Seizures?: No Have you ever Experienced Delirium Tremens(DT)s?: No Have you ever undergone Alcohol Rehabilitation Treatment (i.e, inpt ot outpatient treatment programs)?: No Have you ever Experienced Blackouts?: No Have you ever Combined Alcohol with other Downers within the last 90 days?: No Have you ever Combined Alcohol with any other Substance of Abuse during the last 90 days?: No Positive Blood Alcohol level on Presentation? [PCS.BAL]: No Evidence of Increased Autonomic Activity (i.e. HR>120, tremor, sweating, agitation, nausea)?: No Result: 0
== END 2022-09-02 09:30 | disposition home or self-care (01) ==
PROVIDERS: Emergency Provider Physician Assistant
DX: K80.20 Calculus of gallbladder without cholecystitis without obstruction; K76.0 Fatty (change of) liver, not elsewhere classified; R74.01 Elevation of levels of liver transaminase levels; Z98.890 Other specified postprocedural states
CPT/HCPCS: 99282; 99283

== ENCOUNTER 2022-09-02 10:49 | Outpatient (CLI) | payer MEDICARE, BC, SELFPAY ==
--- NOTE | 2022-09-02 | DI.US_ITS ---
Exam(s) US ABDOMEN LIMITED EXAM: US ABDOMEN LIMITED CLINICAL HISTORY: ELEAVTED LFT'S AND BILIRUBIN, ABD PAIN TECHNIQUE: Ultrasound abdomen performed using standard protocol. COMPARISON: CT CT ABDOMEN PELVIS WO from 08/31/2022 FINDINGS: LIVER: Normal size. Increased echogenicity and decreased through transmission consistent with hepati c steatosis. No focal liver lesions are seen.. GALLBLADDER: Mobile cholelithiasis. No evidence of wall thickening. No pericholecystic fluid identif ied. DUVAL'S SIGN: Negative. BILIARY SYSTEM: No intrahepatic or extrahepatic biliary ductal dilation. KIDNEYS: Kidneys are symmetric in size. No evidence of renal calculi. No evidence of hydronephrosis. No renal mass or cyst identified. PANCREAS: Normal where visualized. SPLEEN: Not enlarged. ABDOMINAL AORTA AND IVC: Visualized portions normal caliber. ASCITES: None seen. IMPRESSION: Hepatic steatosis. Cholelithiasis. DATA REPOSITORY:
--- NOTE | 2022-09-04 14:11 | PDOC.CMACT ---
Date of service: 09/04/22 Time of Service: 14:12 Care Management Activity Note Activity Note Text Activity Note Text: Liz is seen in the ED for cholelithiasis. At th request of ED provider, JONAS coordinates a referral to [facility] to assist Liz in obtaining an appointment for further evaluation and treatment. She has Medicare and BCBS for insurance.
== END 2022-09-02 11:09 ==
PROVIDERS: Visit Provider Physician Assistant
DX: K80.00 Calculus of gallbladder with acute cholecystitis without obstruction (principal); K76.0 Fatty (change of) liver, not elsewhere classified; R10.9 Unspecified abdominal pain
CPT/HCPCS: 76705; 99282; 99283

== ENCOUNTER 2024-03-19 14:41 | Outpatient (CLI) | payer MEDICARE, BC, SELFPAY ==
[2024-03-22 14:26] LABS: ANA Interpretation Positive (Negative); ANA Titer Pattern 1:320 Speckled
[2024-03-29 10:13] LABS: Misc Referral (MAYO) See Comments
[2024-03-29 10:17] LABS: Misc Referral (MAYO) See Comments
== END 2024-03-19 14:42 | disposition home or self-care (01) ==
LOC: LBO 14:42
PROVIDERS: Visit Provider Dermatology
DX: M32.10 Systemic lupus erythematosus, organ or system involvement unspecified (principal)
CPT/HCPCS: 36415; 86038; 86225; 86235